=== PATIENT | male | born 1965 | race Two or more races ===

== ENCOUNTER 2017-06-26 10:49 | Inpatient (IN) | payer OTHER ==
[2017-06-26 12:09] VITALS: BMI 45.1
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
[2017-06-26] MEDS ORDERED: MAG HYDROX/AL HYDROX/SIMETH 30 ML UNIT-DOSE CUP PO PRN (14:00)
[2017-06-26] MEDS ORDERED: MAGNESIUM HYDROX 2400MG/30ML ORAL SUSPENSION 30 ML CUP PO PRN (14:00)
[2017-06-26] MEDS ORDERED: LOPERAMIDE HCL 2 MG CAPSULE PO PRN (14:00)
[2017-06-26] MEDS ORDERED: MENTHOL/PHENOL 1 EACH UD MM PRN (14:00)
[2017-06-26] MEDS ORDERED: diazePAM 5 MG TABLET PO ONE (14:00)
[2017-06-26] MEDS ORDERED: guaiFENesin/D-METHORPHAN HB 10 ML UNIT-DOSE CUPS PO PRN (14:00)
[2017-06-26] MEDS ORDERED: NICOTINE POLACRILEX 2 MG GUM BUC PRN (14:00)
[2017-06-26] MEDS ORDERED: P-EPHED 60MG/TRIPROLIDI 2.5MG TABLET PO PRN (14:00)
[2017-06-26] MEDS ORDERED: MAGNESIUM CITRATE 300 ML BOTTLE PO PRN (14:00)
[2017-06-26] MEDS: ALBUTEROL SO4 18 GM HFA INHALER IH PRN ×2 (17:10→23:31)
[2017-06-26 17:39] LABS: URINE APPEARANCE CLEAR; URINE BILIRUBIN NEGATIVE (NEGATIVE); URINE BLOOD NEGATIVE (NEGATIVE); URINE COLOR LTYELLOW; URINE GLUCOSE (UA) NEGATIVE (NEGATIVE); URINE KETONE NEGATIVE (NEGATIVE); URINE LEUK ESTERASE NEGATIVE (NEGATIVE); URINE NITRITE NEGATIVE (NEGATIVE); URINE PROTEIN NEGATIVE (NEGATIVE)
[2017-06-26] MEDS ORDERED: ALBUTEROL SO4 2.5/IPRATROPIUM 0.5 INH SOL 3 ML VIAL.NEB. NEB PRN (19:42)
[2017-06-26] MEDS: THIAMINE HCL 100 MG TABLET (FP) PO SCH (22:44)
[2017-06-26] MEDS: diazePAM 5 MG TABLET PO SCH (22:44)
[2017-06-27] MEDS: diazePAM 5 MG TABLET PO PRN ×2 (02:25→17:36)
[2017-06-27] MEDS: diazePAM 5 MG TABLET PO SCH ×3 (06:20→21:43)
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
[2017-06-27] MEDS: PRENATAL VITAMINS W/ FOLIC ACID TABLET (FP) PO SCH (09:44)
[2017-06-27] MEDS ORDERED: METHADONE HCL 10 MG TABLET PO ONE (10:00)
[2017-06-27 10:37] LABS: HEMATOCRIT 36.2 % (35.4-49); HEMOGLOBIN 11.8 GM/dL (11.7-16.9); MCH 26.7 pg (25.7-33.7); MCHC 32.6 g/dl (32.0-35.9); MEAN CELL VOLUME 81.9 fl (80-96); MEAN PLT VOLUME 8.5 fl (7.5-11.1); PLATELET COUNT 159 K/MM3 (134-434); RBC 4.42 M/mm3 (4.00-5.60); RDW 17.1 % (11.9-15.9); WHITE BLOOD COUNT 6.5 K/mm3 (4.0-10.0)
[2017-06-27 10:40] LABS: ALBUMIN 3.3 g/dl (3.4-5.0); ANION GAP 6 (8-16); BLOOD UREA NITROGEN 11 mg/dL (7-18); CALCIUM 8.1 mg/dL (8.5-10.1); CHLORIDE 103 mmol/L (98-107); CO2 30 mmol/L (21-32); GLUCOSE,RANDOM 158 mg/dL (74-106); SODIUM 139 mmol/L (136-145)
[2017-06-27 10:44] LABS: ALK PHOS 176 U/L (45-117); BILIRUBIN,TOTAL 0.4 mg/dL (0.2-1.0); CREATININE 0.6 mg/dL (0.7-1.3); SGOT/AST 52 U/L (15-37); SGPT/ALT 68 U/L (12-78)
[2017-06-27] MEDS ORDERED: BISACODYL 5 MG TABLET.DR (FP) PO ONE (10:48)
[2017-06-27] MEDS ORDERED: PNEUMOC 13-VAL CONJ-DIP CRM/PF 0.5 ML DISP.SYRIN IM ONE (12:00)
--- NOTE | 2017-06-27 14:29 | EKG ---
Test Reason : Blood Pressure : / mmHG Vent. Rate : 081 BPM Atrial Rate : 081 BPM P-R Int : 140 ms QRS Dur : 102 ms QT Int : 406 ms P-R-T Axes : 049 039 038 degrees QTc Int : 471 ms NORMAL SINUS RHYTHM NORMAL ECG NO PREVIOUS ECGS AVAILABLE Confirmed by MD KIET, SIGIFREDO ([id number]) on 06/27/2017 2:29:13 PM Referred By: Confirmed By:SIGIFREDO SANTA MD
[2017-06-27] MEDS: ACETAMINOPHEN 325 MG TABLET (FP) PO PRN (15:20)
--- NOTE | 2017-06-27 16:35 | PN ---
S CIWA - CIWA Score Nausea/Vomitin Muscle Tremors: 4-Moderate,w/Arms Extend Anxiety: 4-Mod. Anxious/Guarded Agitation: 4-Moderately Restless Paroxysmal Sweats: 3 Orientation: 0-Oriented Tacttile Disturbances: 0-None Auditory Disturbances: 0-None Visual Disturbances: 0-None Headache: 0-None Present CIWA-Ar Total Score: 18 BHS Progress Note (SOAP) Subjective: Sweating, anxious, restless, constipation x 2 days (wants dulcolax), c/o fungus under feet and requesting antifungal cream Objective: 06/27/17 16:34 Last Vital Signs Temp Pulse Resp BP Pulse Ox 96.6 F L 79 18 117/73 06/27/17 14:29 06/27/17 14:29 06/27/17 14:29 06/27/17 14:29 Laboratory Tests 06/26/17 06/27/17 06/27/17 15:25 08:00 08:00 WBC 6.5 RBC 4.42 Hgb 11.8 D Hct 36.2 D MCV 81.9 MCH 26.7 MCHC 32.6 RDW 17.1 H Plt Count 159 MPV 8.5 Sodium 139 Potassium 4.0 Chloride 103 Carbon Dioxide 30 Anion Gap 6 L BUN 11 D Creatinine 0.6 L D Creat Clearance w eGFR > 60 Random Glucose 158 H D Calcium 8.1 L Total Bilirubin 0.4 D AST 52 H D ALT 68 D Alkaline Phosphatase 176 H D Total Protein 7.0 Albumin 3.3 L Urine Color Ltyellow Urine Appearance Clear Urine pH 8.0 D Ur Specific [place] 1.012 Urine Protein Negative Urine Glucose (UA) Negative Urine Ketones Negative Urine Blood Negative Urine Nitrite Negative Urine Bilirubin Negative Urine Urobilinogen 2.0 Ur Leukocyte Esterase Negative RPR Titer 06/27/17 08:00 WBC RBC Hgb Hct MCV MCH MCHC RDW Plt Count MPV Sodium Potassium Chloride Carbon Dioxide Anion Gap BUN Creatinine Creat Clearance w eGFR Random Glucose Calcium Total Bilirubin AST ALT Alkaline Phosphatase Total Protein Albumin Urine Color Urine Appearance Urine pH Ur Specific [place] Urine Protein Urine Glucose (UA) Urine Ketones Urine Blood Urine Nitrite Urine Bilirubin Urine Urobilinogen Ur Leukocyte Esterase RPR Titer Nonreactive Labs noted Assessment: 06/27/17 16:34 Withdrawal symptoms Plan: Continue detox Encouraged to drink more water for hydration Acute constipation: dulcolax 10mg PO x 1, encouraged to drink lots of water Tinea pedis: lotrimin 1% cream bid
[2017-06-27] MEDS: ALBUTEROL SO4 18 GM HFA INHALER IH PRN ×2 (16:59→21:44)
[2017-06-27] MEDS: IBUPROFEN 400 MG TABLET (FP) PO PRN (21:43)
[2017-06-27] MEDS: THIAMINE HCL 100 MG TABLET (FP) PO SCH (21:43)
[2017-06-27] MEDS: CLOTRIMAZOLE 1% CREAM 15 GM TUBE TP SCH (23:02)
[2017-06-28] MEDS: diazePAM 5 MG TABLET PO PRN ×2 (06:02→17:08)
[2017-06-28] MEDS ORDERED: METHADONE HCL 40 MG DISPERSABLE TABLET PO ONE (09:45)
[2017-06-28] MEDS: diazePAM 5 MG TABLET PO SCH ×2 (09:48→22:15)
[2017-06-28] MEDS: PRENATAL VITAMINS W/ FOLIC ACID TABLET (FP) PO SCH (09:48)
[2017-06-28] MEDS: ALBUTEROL SO4 18 GM HFA INHALER IH PRN (09:50)
--- NOTE | 2017-06-28 12:20 | PN ---
S CIWA - CIWA Score Nausea/Vomitin Muscle Tremors: 3 Anxiety: 4-Mod. Anxious/Guarded Agitation: 4-Moderately Restless Paroxysmal Sweats: 2 Orientation: 0-Oriented Tacttile Disturbances: 0-None Auditory Disturbances: 0-None Visual Disturbances: 0-None Headache: 0-None Present CIWA-Ar Total Score: 16 BHS Progress Note (SOAP) Subjective: sweats sleep disturbance "I have fungus to feet" Objective: 06/28/17 12:16 A & O x 3 Ambulating steadily Swelling to feet with no pitting Peeling to feet Vital Signs Temperature 97.1 F L 06/28/17 09:25 Pulse Rate 87 06/28/17 09:25 Respiratory Rate 20 06/28/17 09:25 Blood Pressure 119/76 06/28/17 09:25 O2 Sat by Pulse Oximetry (%) Assessment: 06/28/17 12:19 withdrawal sx tinea pedis Plan: continue detox Fungal cream to feet
[2017-06-28] MEDS: DOCUSATE SODIUM 100 MG CAPSULE (FP) PO SCH (13:16)
[2017-06-28] MEDS: CLOTRIMAZOLE 1% CREAM 15 GM TUBE TP SCH ×2 (15:45→22:15)
[2017-06-28] MEDS: ACETAMINOPHEN 325 MG TABLET (FP) PO PRN (22:15)
[2017-06-28] MEDS: THIAMINE HCL 100 MG TABLET (FP) PO SCH (22:15)
[2017-06-28] MEDS: hydrOXYzine PAMOATE 25 MG CAPSULE (FP) PO PRN (22:18)
[2017-06-29] MEDS: IBUPROFEN 400 MG TABLET (FP) PO PRN (02:43)
[2017-06-29] MEDS: hydrOXYzine PAMOATE 25 MG CAPSULE (FP) PO PRN (02:43)
[2017-06-29] MEDS ORDERED: METHADONE HCL 40 MG DISPERSABLE TABLET PO SCH (06:00)
[2017-06-29] MEDS: diazePAM 5 MG TABLET PO PRN (06:46)
[2017-06-29] MEDS: ALBUTEROL SO4 18 GM HFA INHALER IH PRN (07:58)
[2017-06-29] MEDS: PRENATAL VITAMINS W/ FOLIC ACID TABLET (FP) PO SCH (10:37)
[2017-06-29] MEDS: DOCUSATE SODIUM 100 MG CAPSULE (FP) PO SCH (10:38)
[2017-06-29] MEDS: diazePAM 5 MG TABLET PO SCH (10:38)
--- NOTE | 2017-06-29 12:33 | PN ---
Psychiatric Progress Note Vital Signs: Vital Signs Period Temp Pulse Resp BP Sys/Rashid Pulse Ox Last 24 Hr 97.2 F-98.6 F 77-84 14-20 104-121/64-79 Date of Session: 06/29/17 Chief Complaint:: Not offered. HPI: Patient not found for examination.Left unit without contact with this song writer.See staff's notes for details. Current Medications: Active Medications Generic Name Dose Route Start Last Admin Trade Name Freq PRN Reason Stop Dose Admin Acetaminophen 650 mg 06/26/17 14:00 06/28/17 22:15 Tylenol - PO 650 mg Q4H PRN Administration FEVER Al Hydroxide/Mg Hydroxide 30 ml 06/26/17 14:00 Mylanta Oral Suspension - PO Q6H PRN DYSPEPSIA Albuterol Sulfate 2 puff 06/26/17 14:01 06/29/17 07:58 Ventolin Hfa Inhaler - IH 2 puff Q4H PRN Administration WHEEZING Albuterol/Ipratropium 1 amp 06/26/17 19:42 Duoneb - NEB Q6H PRN SHORTNESS OF BREATH Clotrimazole 1 applic 06/27/17 22:00 06/28/17 22:15 Lotrimin 1% Cream - TP Not Given BID GRECIA Diazepam 10 mg 06/26/17 14:00 06/29/17 06:46 Valium - PO 06/29/17 13:59 10 mg Q4H PRN Administration WITHDRAWAL(CONT SUBST) Diazepam 5 mg 06/28/17 10:00 06/29/17 10:38 Valium - PO 06/29/17 22:01 5 mg BID GRECIA Administration Diazepam 5 mg 06/30/17 10:00 Valium - PO 06/30/17 10:01 DAILY GRECIA Docusate Sodium 100 mg 06/28/17 12:45 06/29/17 10:38 Colace - PO Not Given DAILY GRECIA Eucalyptus/Menthol/Phenol/Sorbitol 1 each 06/26/17 14:00 Cepastat Lozenge - MM Q4H PRN SORE THROAT Guaifenesin 10 ml 06/26/17 14:00 Robitussin Dm - PO Q6H PRN COUGH Hydroxyzine Pamoate 25 mg 06/26/17 14:00 06/29/17 02:43 Vistaril - PO 25 mg Q4H PRN Administration AGITATION Ibuprofen 400 mg 06/26/17 14:00 06/29/17 02:43 Motrin - PO 400 mg Q6H PRN Administration PAIN LEVEL 4-6 Loperamide HCl 4 mg 06/26/17 14:00 Imodium - PO Q6H PRN DIARRHEA Magnesium Citrate 300 ml 06/26/17 14:00 Citroma - PO Q48H PRN CONSTIPATION Magnesium Hydroxide 30 ml 06/26/17 14:00 Milk Of Magnesia - PO DAILY PRN CONSTIPATION Methadone HCl 80 mg 06/29/17 06:00 06/29/17 05:47 Dolophine - PO 07/05/17 06:01 80 mg DAILY@0600 GRECIA Administration Nicotine Polacrilex 2 mg 06/26/17 14:00 Nicorette Gum - BUC Q2H PRN NICOTINE REPLACEMENT RX Multivit/Folic Acid/Iron 1 tab 06/27/17 10:00 06/29/17 10:37 Vitamins (Sjr) - PO 1 tab DAILY GRECIA Administration Pseudoephedrine/Triprolidine 1 combo 06/26/17 14:00 Actifed - PO TID PRN NASAL CONGESTION Thiamine HCl 100 mg 06/26/17 22:00 06/28/17 22:15 Vitamin B1 - PO 100 mg HS GRECIA Administration
--- NOTE | 2017-06-29 12:59 | DS ---
[facility] Detox Discharge Summary Admission Date: 06/26/17 Discharge Date: 06/29/17 - History Present History: Sedative Dependence Additional Comments: PATIENT DOES NOT WISH TO STAY TO COMPLETE DETOX REGIMEN. RISKS OF LEAVING DETOX UNIT AGAINST MEDICAL ADVICE AND PRIOR TO COMPLETION OF DETOX REGIMEN EXPLAINED TO PATIENT. PATIENT ADVISED TO GO IMMEDIATELY TO NEAREST ER SHOULD ANY INTOLERABLE DETOX SYMPTOMS DEVELOP AT ANY TIME. PATIENT LEFT DETOX UNIT IN STABLE MEDICAL CONDITION. Pertinent Past History: Pedal Edema, MMTP, Bipolar disorder, Nicotine Dependence, Asthma. - Physical Exam Results Vital Signs: Vital Signs Temperature 98.0 F 06/29/17 09:09 Pulse Rate 77 06/29/17 09:09 Respiratory Rate 18 06/29/17 09:09 Blood Pressure 108/64 06/29/17 09:09 O2 Sat by Pulse Oximetry (%) Pertinent Admission Physical Exam Findings: WITHDRAWAL SYMPTOMS. Laboratory Tests 06/26/17 06/27/17 06/27/17 15:25 08:00 08:00 WBC 6.5 RBC 4.42 Hgb 11.8 D Hct 36.2 D MCV 81.9 MCH 26.7 MCHC 32.6 RDW 17.1 H Plt Count 159 MPV 8.5 Sodium 139 Potassium 4.0 Chloride 103 Carbon Dioxide 30 Anion Gap 6 L BUN 11 D Creatinine 0.6 L D Creat Clearance w eGFR > 60 Random Glucose 158 H D Calcium 8.1 L Total Bilirubin 0.4 D AST 52 H D ALT 68 D Alkaline Phosphatase 176 H D Total Protein 7.0 Albumin 3.3 L Urine Color Ltyellow Urine Appearance Clear Urine pH 8.0 D Ur Specific [place] 1.012 Urine Protein Negative Urine Glucose (UA) Negative Urine Ketones Negative Urine Blood Negative Urine Nitrite Negative Urine Bilirubin Negative Urine Urobilinogen 2.0 Ur Leukocyte Esterase Negative RPR Titer 06/27/17 08:00 WBC RBC Hgb Hct MCV MCH MCHC RDW Plt Count MPV Sodium Potassium Chloride Carbon Dioxide Anion Gap BUN Creatinine Creat Clearance w eGFR Random Glucose Calcium Total Bilirubin AST ALT Alkaline Phosphatase Total Protein Albumin Urine Color Urine Appearance Urine pH Ur Specific [place] Urine Protein Urine Glucose (UA) Urine Ketones Urine Blood Urine Nitrite Urine Bilirubin Urine Urobilinogen Ur Leukocyte Esterase RPR Titer Nonreactive LABS NOTED. - Treatment Hospital Course: Detoxed Safely - Medication Discharge Medications: Ambulatory Orders Albuterol Sulfate Inhaler - [Ventolin Hfa Inhaler -] 2 inh PO Q4H PRN 06/26/17 Fluoxetine HCl [Prozac -] 40 mg PO BID 06/26/17 Mirtazapine [Remeron -] 15 mg PO HS 06/26/17 Sertraline HCl [Zoloft] 100 mg PO BID 06/26/17 - Diagnosis (1) Asthma Current Visit: Yes Status: Chronic Qualifiers: Asthma severity: mild Asthma persistence: intermittent Asthma complication type: uncomplicated Qualified Code(s): J45.20 - Mild intermittent asthma, uncomplicated (2) Methadone maintenance therapy patient Current Visit: Yes Status: Chronic (3) Nicotine dependence Current Visit: Yes Status: Chronic Qualifiers: Nicotine product type: cigarettes Substance use status: uncomplicated Qualified Code(s): F17.210 - Nicotine dependence, cigarettes, uncomplicated (4) Obesity, Class III, BMI 40-49.9 (morbid obesity) Current Visit: Yes Status: Chronic (5) Pedal edema Current Visit: Yes Status: Chronic (6) Bipolar II disorder Current Visit: No Status: Chronic (7) Sedative, hypnotic or anxiolytic dependence with withdrawal, uncomplicated Current Visit: Yes Status: Acute - AMA Did Patient Leave Against Medical Advice: Yes (PATIENT DID NOT WISH TO STAY TO COMPLETE DEOTX REGIMEN.)
[2017-06-29 13:23] VITALS: BP 110/87; PULSE 76; TEMP 98.7
[2017-06-30] MEDS ORDERED: diazePAM 5 MG TABLET PO SCH (10:00)
== END 2017-06-29 12:30 | disposition left against medical advice (07) | DRG 770 ==
LOC: YASAS 10:49 → Y3N 14:08
PROVIDERS: ADMIT Internal Medicine; ATTEND Internal Medicine
PROC: HZ2ZZZZ Detoxification Services for Substance Abuse Treatment (ICD-10-PCS; principal; 2017-06-26)
DX: F13.230 Sedative, hypnotic or anxiolytic dependence with withdrawal, uncomplicated (principal); F11.20 Opioid dependence, uncomplicated; F17.210 Nicotine dependence, cigarettes, uncomplicated; F31.81 Bipolar II disorder; J45.20 Mild intermittent asthma, uncomplicated; E66.01 Morbid (severe) obesity due to excess calories; Z68.42 Body mass index [BMI] 45.0-49.9, adult; R60.0 Localized edema; B35.3 Tinea pedis; K59.00 Constipation, unspecified; Z91.013 Allergy to seafood; Z86.69 Personal history of other diseases of the nervous system and sense organs
CPT/HCPCS: 36415; 80053; 81003; 85027; 86593; 90670; 93005; 93010

== ENCOUNTER 2017-08-04 16:04 | Inpatient (IN) | payer OTHER ==
[2017-08-04 16:57] VITALS: BMI 44.9
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
[2017-08-04] MEDS ORDERED: MAGNESIUM CITRATE 300 ML BOTTLE PO PRN (21:44)
[2017-08-04] MEDS ORDERED: LOPERAMIDE HCL 2 MG CAPSULE PO PRN (21:44)
[2017-08-04] MEDS ORDERED: MAG HYDROX/AL HYDROX/SIMETH 30 ML UNIT-DOSE CUP PO PRN (21:44)
[2017-08-04] MEDS ORDERED: guaiFENesin/D-METHORPHAN HB 10 ML UNIT-DOSE CUPS PO PRN (21:44)
[2017-08-04] MEDS ORDERED: P-EPHED 60MG/TRIPROLIDI 2.5MG TABLET PO PRN (21:44)
[2017-08-04] MEDS ORDERED: MENTHOL/PHENOL 1 EACH UD MM PRN (21:44)
[2017-08-04] MEDS ORDERED: IBUPROFEN 400 MG TABLET (FP) PO PRN (21:44)
[2017-08-04] MEDS ORDERED: MAGNESIUM HYDROX 2400MG/30ML ORAL SUSPENSION 30 ML CUP PO PRN (21:44)
[2017-08-04] MEDS ORDERED: ACETAMINOPHEN 325 MG TABLET (FP) PO PRN (21:44)
[2017-08-05] LABS: URINE APPEARANCE SLCLOUDY; URINE BILIRUBIN NEGATIVE (<2.0 mg/dL); URINE BLOOD NEGATIVE (NEGATIVE); URINE COLOR AMBER; URINE GLUCOSE (UA) NEGATIVE (NEGATIVE); URINE KETONE NEGATIVE (NEGATIVE); URINE LEUK ESTERASE NEGATIVE (NEGATIVE); URINE NITRITE NEGATIVE (NEGATIVE); URINE PROTEIN NEGATIVE (NEGATIVE); URINE UROBILINOGEN NEGATIVE mg/dL (0.2-1.0)
[2017-08-05] MEDS: THIAMINE HCL 100 MG TABLET (FP) PO SCH ×2 (00:22→21:44)
[2017-08-05] MEDS: hydrOXYzine PAMOATE 50 MG CAPSULE (FP) PO PRN (00:22)
[2017-08-05] MEDS: MELATONIN 5 MG TABLETS PO PRN ×2 (00:22→21:45)
[2017-08-05] MEDS ORDERED: METHADONE HCL 10 MG TABLET PO SCH (08:00)
[2017-08-05] MEDS ORDERED: METHADONE HCL 10 MG TABLET ONE (08:47)
[2017-08-05] MEDS: METHADONE 40 MG, METHADONE 30 MG PO SCH (08:48)
[2017-08-05] MEDS ORDERED: METHADONE HCL 40 MG DISPERSABLE TABLET ONE (08:48)
[2017-08-05 10:00] LABS: HEMOGLOBIN 13.1 GM/dL (11.7-16.9); MCH 26.5 pg (25.7-33.7); MEAN CELL VOLUME 82.8 fl (80-96); MEAN PLT VOLUME 9.1 fl (7.5-11.1); PLATELET COUNT 168 K/MM3 (134-434); RBC 4.95 M/mm3 (4.00-5.60); RDW 16.4 % (11.9-15.9); WHITE BLOOD COUNT 7.3 K/mm3 (4.0-10.0)
[2017-08-05] MEDS: PRENATAL VITAMINS W/ FOLIC ACID TABLET (FP) PO SCH (10:09)
[2017-08-05] MEDS: NICOTINE 14 MG/24 HOURS TOPICAL PATCH TD SCH (10:09)
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
[2017-08-05 10:26] LABS: CHLORIDE 105 mmol/L (98-107); POTASSIUM 4.4 mmol/L (3.5-5.1); SODIUM 139 mmol/L (136-145)
[2017-08-05 10:40] LABS: ALBUMIN 3.5 g/dl (3.4-5.0); ALK PHOS 233 U/L (45-117); ANION GAP 6 (8-16); BILIRUBIN,TOTAL 0.3 mg/dL (0.2-1.0); BLOOD UREA NITROGEN 15 mg/dL (7-18); CALCIUM 8.6 mg/dL (8.5-10.1); CO2 28 mmol/L (21-32); CREATININE 0.7 mg/dL (0.7-1.3); GLUCOSE,RANDOM 105 mg/dL (74-106); SGOT/AST 53 U/L (15-37); SGPT/ALT 106 U/L (12-78); TOT PROT 7.7 g/dl (6.4-8.2)
--- NOTE | 2017-08-05 13:31 | EKG ---
Test Reason : Blood Pressure : / mmHG Vent. Rate : 063 BPM Atrial Rate : 063 BPM P-R Int : 142 ms QRS Dur : 100 ms QT Int : 458 ms P-R-T Axes : 054 038 046 degrees QTc Int : 468 ms NORMAL SINUS RHYTHM NORMAL ECG WHEN COMPARED WITH ECG OF 26-JUN-2017 15:22, NO SIGNIFICANT CHANGE WAS FOUND Confirmed by NHAN DE LA O MD ([id number]) on 08/05/2017 1:31:06 PM Referred By: Confirmed By:NHAN DE LA O MD
[2017-08-05] MEDS: PATIENT'S OWN MEDICATION (NON-FORMULARY) (Sertraline Hcl [Zoloft] 100 MG) PO SCH ×2 (15:13→21:43)
[2017-08-05] MEDS: HALOPERIDOL PO SCH ×2 (15:13→21:43)
[2017-08-05] MEDS ORDERED: PT OWN MED DRAWER 7, Y5N ONE (20:25)
[2017-08-05] MEDS: PATIENT'S OWN MEDICATION (NON-FORMULARY) (Mirtazapine [Remeron -] 15 MG) PO SCH (21:44)
[2017-08-06] MEDS ORDERED: METHADONE HCL 10 MG TABLET ONE (04:09)
[2017-08-06] MEDS ORDERED: METHADONE HCL 40 MG DISPERSABLE TABLET ONE (04:10)
[2017-08-06] MEDS: METHADONE 40 MG, METHADONE 30 MG PO SCH (06:28)
[2017-08-06] MEDS ORDERED: PT OWN MED DRAWER 7, Y5N ONE ×2 (08:43→20:13)
[2017-08-06] MEDS: PRENATAL VITAMINS W/ FOLIC ACID TABLET (FP) PO SCH (10:03)
[2017-08-06] MEDS: PATIENT'S OWN MEDICATION (NON-FORMULARY) (Sertraline Hcl [Zoloft] 100 MG) PO SCH ×2 (10:04→21:23)
[2017-08-06] MEDS: HALOPERIDOL PO SCH ×2 (10:04→21:22)
[2017-08-06] MEDS: NICOTINE 14 MG/24 HOURS TOPICAL PATCH TD SCH (10:04)
--- NOTE | 2017-08-06 13:10 | PN ---
[facility] Progress Note Note: Pt requesting for colace for constipation. Colace 100mg bid ordered. Continue to monitor clinically.
[2017-08-06] MEDS: hydrOXYzine PAMOATE 50 MG CAPSULE (FP) PO PRN ×2 (13:18→21:22)
[2017-08-06] MEDS: THIAMINE HCL 100 MG TABLET (FP) PO SCH (21:22)
[2017-08-06] MEDS: MELATONIN 5 MG TABLETS PO PRN (21:22)
[2017-08-06] MEDS: PATIENT'S OWN MEDICATION (NON-FORMULARY) (Mirtazapine [Remeron -] 15 MG) PO SCH (21:22)
[2017-08-06] MEDS: DOCUSATE SODIUM 100 MG CAPSULE (FP) PO PRN (21:22)
[2017-08-07] MEDS ORDERED: METHADONE HCL 10 MG TABLET ONE (03:59)
[2017-08-07] MEDS ORDERED: METHADONE HCL 40 MG DISPERSABLE TABLET ONE (04:00)
[2017-08-07] MEDS: METHADONE 40 MG, METHADONE 30 MG PO SCH (06:04)
[2017-08-07] MEDS: PRENATAL VITAMINS W/ FOLIC ACID TABLET (FP) PO SCH (09:53)
[2017-08-07] MEDS: PATIENT'S OWN MEDICATION (NON-FORMULARY) (Sertraline Hcl [Zoloft] 100 MG) PO SCH ×2 (09:53→21:30)
[2017-08-07] MEDS: NICOTINE 14 MG/24 HOURS TOPICAL PATCH TD SCH (09:53)
[2017-08-07] MEDS: HALOPERIDOL PO SCH ×2 (09:53→21:30)
[2017-08-07] MEDS: hydrOXYzine PAMOATE 50 MG CAPSULE (FP) PO PRN ×2 (14:45→21:30)
[2017-08-07] MEDS ORDERED: PT OWN MED DRAWER 7, Y5N ONE ×2 (19:54→21:32)
[2017-08-07] MEDS: DOCUSATE SODIUM 100 MG CAPSULE (FP) PO PRN (21:29)
[2017-08-07] MEDS: PATIENT'S OWN MEDICATION (NON-FORMULARY) (Mirtazapine [Remeron -] 15 MG) PO SCH (21:30)
[2017-08-07] MEDS: THIAMINE HCL 100 MG TABLET (FP) PO SCH (21:30)
[2017-08-07] MEDS: ALBUTEROL SO4 18 GM HFA INHALER IH PRN (21:33)
[2017-08-08] MEDS ORDERED: METHADONE HCL 10 MG TABLET ONE (04:11)
[2017-08-08] MEDS ORDERED: METHADONE HCL 40 MG DISPERSABLE TABLET ONE (04:11)
[2017-08-08] MEDS: METHADONE 40 MG, METHADONE 30 MG PO SCH (06:03)
[2017-08-08] MEDS ORDERED: PT OWN MED DRAWER 7, Y5N ONE ×2 (08:47→19:41)
[2017-08-08] MEDS: NICOTINE 14 MG/24 HOURS TOPICAL PATCH TD SCH (09:19)
[2017-08-08] MEDS: PRENATAL VITAMINS W/ FOLIC ACID TABLET (FP) PO SCH (09:19)
[2017-08-08] MEDS: HALOPERIDOL PO SCH ×2 (09:20→21:23)
[2017-08-08] MEDS: hydrOXYzine PAMOATE 50 MG CAPSULE (FP) PO PRN ×2 (09:20→21:23)
[2017-08-08] MEDS: PATIENT'S OWN MEDICATION (NON-FORMULARY) (Sertraline Hcl [Zoloft] 100 MG) PO SCH ×2 (09:20→21:24)
[2017-08-08] MEDS: MELATONIN 5 MG TABLETS PO PRN (21:23)
[2017-08-08] MEDS: DOCUSATE SODIUM 100 MG CAPSULE (FP) PO PRN (21:23)
[2017-08-08] MEDS: THIAMINE HCL 100 MG TABLET (FP) PO SCH (21:23)
[2017-08-08] MEDS: ALBUTEROL SO4 18 GM HFA INHALER IH PRN (21:24)
[2017-08-08] MEDS: PATIENT'S OWN MEDICATION (NON-FORMULARY) (Mirtazapine [Remeron -] 15 MG) PO SCH (21:24)
[2017-08-09] MEDS ORDERED: METHADONE HCL 40 MG DISPERSABLE TABLET ONE (03:04)
[2017-08-09] MEDS ORDERED: METHADONE HCL 10 MG TABLET ONE (03:04)
[2017-08-09] MEDS: METHADONE 40 MG, METHADONE 30 MG PO SCH (06:32)
[2017-08-09] MEDS: hydrOXYzine PAMOATE 50 MG CAPSULE (FP) PO PRN ×3 (06:46→18:03)
[2017-08-09] MEDS ORDERED: PT OWN MED DRAWER 7, Y5N ONE ×3 (08:43→21:58)
[2017-08-09] MEDS: PRENATAL VITAMINS W/ FOLIC ACID TABLET (FP) PO SCH (09:25)
[2017-08-09] MEDS: HALOPERIDOL PO SCH ×2 (09:25→21:07)
[2017-08-09] MEDS: PATIENT'S OWN MEDICATION (NON-FORMULARY) (Sertraline Hcl [Zoloft] 100 MG) PO SCH (09:25)
[2017-08-09] MEDS: ALBUTEROL SO4 18 GM HFA INHALER IH PRN ×2 (09:26→21:07)
[2017-08-09] MEDS: NICOTINE 14 MG/24 HOURS TOPICAL PATCH TD SCH (09:51)
[2017-08-09] MEDS: NICOTINE POLACRILEX 2 MG GUM BUC PRN (19:29)
[2017-08-09] MEDS: DOCUSATE SODIUM 100 MG CAPSULE (FP) PO PRN (21:04)
[2017-08-09] MEDS: MELATONIN 5 MG TABLETS PO PRN (21:04)
[2017-08-09] MEDS: SERTRALINE HCL 50 MG TABLET (FP) PO SCH (21:05)
[2017-08-09] MEDS: PATIENT'S OWN MEDICATION (NON-FORMULARY) (Mirtazapine [Remeron -] 15 MG) PO SCH (21:07)
[2017-08-09] MEDS: THIAMINE HCL 100 MG TABLET (FP) PO SCH (21:07)
[2017-08-10] MEDS ORDERED: METHADONE HCL 40 MG DISPERSABLE TABLET ONE (05:01)
[2017-08-10] MEDS ORDERED: METHADONE HCL 10 MG TABLET ONE (05:01)
[2017-08-10] MEDS: METHADONE 40 MG, METHADONE 30 MG PO SCH (05:57)
[2017-08-10] MEDS: hydrOXYzine PAMOATE 50 MG CAPSULE (FP) PO PRN ×3 (06:10→17:57)
[2017-08-10] MEDS: SERTRALINE HCL 50 MG TABLET (FP) PO SCH ×2 (09:47→21:03)
[2017-08-10] MEDS: NICOTINE 14 MG/24 HOURS TOPICAL PATCH TD SCH (09:47)
[2017-08-10] MEDS: PRENATAL VITAMINS W/ FOLIC ACID TABLET (FP) PO SCH (09:48)
[2017-08-10] MEDS: HALOPERIDOL PO SCH ×2 (09:48→21:03)
[2017-08-10] MEDS ORDERED: PT OWN MED DRAWER 7, Y5N ONE ×3 (09:48→22:43)
[2017-08-10] MEDS: NICOTINE POLACRILEX 2 MG GUM BUC PRN (18:00)
[2017-08-10] MEDS: PATIENT'S OWN MEDICATION (NON-FORMULARY) (Mirtazapine [Remeron -] 15 MG) PO SCH (21:04)
[2017-08-10] MEDS: THIAMINE HCL 100 MG TABLET (FP) PO SCH (22:07)
[2017-08-11] MEDS ORDERED: METHADONE HCL 10 MG TABLET ONE (04:08)
[2017-08-11] MEDS ORDERED: METHADONE HCL 40 MG DISPERSABLE TABLET ONE (04:08)
[2017-08-11] MEDS: METHADONE 40 MG, METHADONE 30 MG PO SCH (06:08)
[2017-08-11 06:50] VITALS: TEMP 97.2
[2017-08-11] MEDS: hydrOXYzine PAMOATE 50 MG CAPSULE (FP) PO PRN ×3 (07:15→17:44)
[2017-08-11] MEDS ORDERED: PT OWN MED DRAWER 7, Y5N ONE ×2 (08:41→19:39)
[2017-08-11] MEDS: PRENATAL VITAMINS W/ FOLIC ACID TABLET (FP) PO SCH (09:39)
[2017-08-11] MEDS: SERTRALINE HCL 50 MG TABLET (FP) PO SCH ×2 (09:40→21:04)
[2017-08-11] MEDS: NICOTINE 14 MG/24 HOURS TOPICAL PATCH TD SCH (09:40)
[2017-08-11] MEDS: HALOPERIDOL PO SCH ×2 (09:40→21:05)
[2017-08-11] MEDS: ALBUTEROL SO4 18 GM HFA INHALER IH PRN ×2 (09:41→21:04)
--- NOTE | 2017-08-11 14:00 | PN ---
[facility] Progress Note Note: Pt presents with anxiety, muscle aches and tremors. Denies CP, SOB and Dizziness. Vital Signs Temperature 97.2 F L 08/11/17 06:49 Pulse Rate 74 08/11/17 06:49 Respiratory Rate 18 08/11/17 06:49 Blood Pressure 111/75 08/11/17 06:49 O2 Sat by Pulse Oximetry (%) Laboratory Tests 08/04/17 08/05/17 08/05/17 22:30 08:35 08:35 WBC 7.3 RBC 4.95 Hgb 13.1 D Hct 41.0 MCV 82.8 MCH 26.5 MCHC 32.0 RDW 16.4 H Plt Count 168 MPV 9.1 Sodium 139 Potassium 4.4 Chloride 105 Carbon Dioxide 28 Anion Gap 6 L BUN 15 D Creatinine 0.7 Creat Clearance w eGFR > 60 Random Glucose 105 D Calcium 8.6 Total Bilirubin 0.3 D AST 53 H ALT 106 H D Alkaline Phosphatase 233 H D Total Protein 7.7 Albumin 3.5 Urine Color Radha Urine Appearance Slcloudy Urine pH 5.0 D Ur Specific [place] 1.025 Urine Protein Negative Urine Glucose (UA) Negative Urine Ketones Negative Urine Blood Negative Urine Nitrite Negative Urine Bilirubin Negative Urine Urobilinogen Negative Ur Leukocyte Esterase Negative RPR Titer 08/05/17 08:35 WBC RBC Hgb Hct MCV MCH MCHC RDW Plt Count MPV Sodium Potassium Chloride Carbon Dioxide Anion Gap BUN Creatinine Creat Clearance w eGFR Random Glucose Calcium Total Bilirubin AST ALT Alkaline Phosphatase Total Protein Albumin Urine Color Urine Appearance Urine pH Ur Specific [place] Urine Protein Urine Glucose (UA) Urine Ketones Urine Blood Urine Nitrite Urine Bilirubin Urine Urobilinogen Ur Leukocyte Esterase RPR Titer Nonreactive Obj: General: Pt anxious and pacing within unit. Skin: warm and dry Ext: full ROM, no edema. + mild tremors A/P Withdrawal syndrome BP stable Will order clonidine 0.1mg po once continue vistaril and monitor clinically
[2017-08-11] MEDS ORDERED: cloNIDine HCL 0.1 MG TABLET PO ONE (14:15)
[2017-08-11] MEDS: NICOTINE POLACRILEX 2 MG GUM BUC PRN (19:06)
[2017-08-11] MEDS: DOCUSATE SODIUM 100 MG CAPSULE (FP) PO PRN (21:04)
[2017-08-11] MEDS: MELATONIN 5 MG TABLETS PO PRN (21:04)
[2017-08-11] MEDS: THIAMINE HCL 100 MG TABLET (FP) PO SCH (21:05)
[2017-08-11] MEDS: PATIENT'S OWN MEDICATION (NON-FORMULARY) (Mirtazapine [Remeron -] 15 MG) PO SCH (21:05)
[2017-08-12] MEDS ORDERED: METHADONE HCL 10 MG TABLET ONE (04:06)
[2017-08-12] MEDS ORDERED: METHADONE HCL 40 MG DISPERSABLE TABLET ONE (04:06)
[2017-08-12] MEDS ORDERED: METHADONE 40 MG, METHADONE 30 MG PO SCH (06:00)
[2017-08-12] MEDS: hydrOXYzine PAMOATE 50 MG CAPSULE (FP) PO PRN (06:31)
[2017-08-12 06:38] VITALS: BP 129/73; PULSE 83
[2017-08-12] MEDS: HALOPERIDOL PO SCH (09:56)
[2017-08-12] MEDS: PRENATAL VITAMINS W/ FOLIC ACID TABLET (FP) PO SCH (09:57)
[2017-08-12] MEDS: NICOTINE 14 MG/24 HOURS TOPICAL PATCH TD SCH (09:57)
[2017-08-12] MEDS: SERTRALINE HCL 50 MG TABLET (FP) PO SCH (09:57)
--- NOTE | 2017-08-12 09:59 | PN ---
Psychiatric Progress Note Vital Signs: Vital Signs Period Temp Pulse Resp BP Sys/Rashid Pulse Ox Last 24 Hr 97.2 F 83 18-20 129/73 Date of Session: 08/12/17 Chief Complaint:: Discharge Note HPI: Patient addressing Alcohol and Sedative Dependence comorbid with Opioid Dependence on Agonist Therapy, Nicotine Dependence, Schizoaffective Disorder, Substance-Induced Mood Disorder and Substance-Induced Sleep Disorder Current Medications: Active Medications Generic Name Dose Route Start Last Admin Trade Name Freq PRN Reason Stop Dose Admin Acetaminophen 650 mg 08/04/17 21:44 Tylenol - PO Q4H PRN FEVER Al Hydroxide/Mg Hydroxide 30 ml 08/04/17 21:44 Mylanta Oral Suspension - PO Q6H PRN DYSPEPSIA Albuterol Sulfate 2 puff 08/04/17 21:43 08/11/17 21:04 Ventolin Hfa Inhaler - IH 2 puff Q4H PRN Administration WHEEZING Docusate Sodium 100 mg 08/06/17 13:09 08/11/17 21:04 Colace - PO 100 mg BID PRN Administration CONSTIPATION Eucalyptus/Menthol/Phenol/Sorbitol 1 each 08/04/17 21:44 Cepastat Lozenge - MM Q4H PRN SORE THROAT Guaifenesin 10 ml 08/04/17 21:44 Robitussin Dm - PO Q6H PRN COUGH Hydroxyzine Pamoate 50 mg 08/04/17 21:44 08/12/17 06:31 Vistaril - PO 50 mg Q4H PRN Administration AGITATION Ibuprofen 400 mg 08/04/17 21:44 Motrin - PO Q6H PRN Pain level 4-6 Loperamide HCl 4 mg 08/04/17 21:44 Imodium - PO Q6H PRN DIARRHEA Magnesium Citrate 300 ml 08/04/17 21:44 Citroma - PO Q48H PRN CONSTIPATION Magnesium Hydroxide 30 ml 08/04/17 21:44 Milk Of Magnesia - PO DAILY PRN CONSTIPATION Melatonin 5 mg 08/04/17 22:00 08/11/17 21:04 Melatonin PO 5 mg HS PRN Administration INSOMNIA Methadone HCl 40 mg/ Methadone 70 mg 08/12/17 06:00 08/12/17 06:29 HCl 30 mg PO 08/18/17 05:59 70 mg DAILY@0600 GRECIA Administration Nicotine 14 mg 08/05/17 10:00 08/11/17 09:40 Nicoderm Patch - TD Not Given DAILY GRECIA Nicotine Polacrilex 2 mg 08/04/17 21:44 08/11/17 19:06 Nicorette Gum - BUC 2 mg Q2H PRN Administration NICOTINE REPLACEMENT RX Non-Formulary Medication 5 mg 08/05/17 15:00 08/11/17 21:05 Haloperidol [Haldol -] PO 5 mg BID GRECIA Administration Non-Formulary Medication 15 mg 08/05/17 22:00 08/11/17 21:05 Mirtazapine [Remeron -] PO 15 mg HS GRECIA Administration Multivit/Folic Acid/Iron 1 tab 08/05/17 10:00 08/11/17 09:39 Vitamins (Sjr) - PO 1 tab DAILY GRECIA Administration Pseudoephedrine/Triprolidine 1 combo 08/04/17 21:44 Actifed - PO TID PRN NASAL CONGESTION Sertraline HCl 100 mg 08/09/17 22:00 08/11/17 21:04 Zoloft - PO 100 mg BID GRECIA Administration Thiamine HCl 100 mg 08/04/17 22:00 08/11/17 21:05 Vitamin B1 - PO 100 mg HS GRECIA Administration Current Side Effect: No Lab tests ordered: Yes Lab tests reviewed: Yes Provider note:: Patient has completed this program on 08/12/17. He has met his treatment goals and will continue to address his issues in outpatient treatment at [facility]. Told underwriter mortgage loan that from his participation in this program, he has learned the importance of implementing the 12 step in his quest for abstinence. He responded well to Zoloft 100 mg po BID, Remeron 15 mg po HS and Haldol 5 mg po BID. Scripts for these medications are electronically transmitted to [facility]. He is stable for discharge today Total face to face time:: 35 Mental Status Exam - Mental Status Exam Alert and Oriented to: Time, Place, Person Cognitive Function: Fair Patient Appearance: Well Groomed Mood: Hopeful, Euthymic Affect: Appropriate Patient Behavior: Cooperative Speech Pattern: Clear Voice Loudness: Normal Thought Process: Intact, Goal Oriented Thought Disorder: Not Present Hallucinations: Denies Suicidal Ideation: Denies Homicidal Ideation: Denies Insight/Judgement: Fair Sleep: Fair Appetite: Good Muscle strength/Tone: Normal Gait/Station: Normal Psychiatric Treatment Plan - Problem List (1) Alcohol dependence Current Visit: No (2) Sedative hypnotic or anxiolytic dependence Current Visit: Yes (3) Opioid dependence on agonist therapy Current Visit: No (4) Nicotine dependence Current Visit: No Qualifiers: Nicotine product type: cigarettes Substance use status: uncomplicated Qualified Code(s): F17.210 - Nicotine dependence, cigarettes, uncomplicated (5) Schizoaffective disorder Current Visit: No (6) Bipolar I disorder, most recent episode depressed Current Visit: No (7) Substance induced mood disorder Current Visit: Yes (8) Substance-induced sleep disorder Current Visit: Yes (9) Asthma Current Visit: Yes Qualifiers: Asthma severity: mild Asthma persistence: intermittent Asthma complication type: uncomplicated Qualified Code(s): J45.20 - Mild intermittent asthma, uncomplicated (10) Benzodiazepine withdrawal Current Visit: No Qualifiers: Complication of substance-induced condition: uncomplicated Qualified Code(s ): F13.230 - Sedative, hypnotic or anxiolytic dependence with withdrawal, uncomplicated (11) Obesity, Class III, BMI 40-49.9 (morbid obesity) Current Visit: No Initial treatment plan: Patient is discharged today and referred to [facility] for outpatient treatment
== END 2017-08-12 09:28 | disposition home or self-care (01) | DRG 772 ==
LOC: YASAS 16:04 → Y3W 18:26
PROVIDERS: ADMIT Psychiatry & Neurology Psychiatry; ATTEND Psychiatry & Neurology Psychiatry
PROC: HZ42ZZZ Group Counseling for Substance Abuse Treatment, Cognitive-Behavioral (ICD-10-PCS; principal; 2017-08-04)
DX: F11.20 Opioid dependence, uncomplicated (principal); F13.230 Sedative, hypnotic or anxiolytic dependence with withdrawal, uncomplicated; F10.230 Alcohol dependence with withdrawal, uncomplicated; F17.210 Nicotine dependence, cigarettes, uncomplicated; F25.9 Schizoaffective disorder, unspecified; F19.24 Other psychoactive substance dependence with psychoactive substance-induced mood disorder; F19.282 Other psychoactive substance dependence with psychoactive substance-induced sleep disorder; J45.20 Mild intermittent asthma, uncomplicated; F31.30 Bipolar disorder, current episode depressed, mild or moderate severity, unspecified; E66.01 Morbid (severe) obesity due to excess calories; Z68.42 Body mass index [BMI] 45.0-49.9, adult
CPT/HCPCS: 36415; 80053; 81003; 85027; 86593; 93005; 93010; J0735

== ENCOUNTER 2023-04-28 11:58 | Inpatient (IN) | payer OTHER ==
[2023-04-28 12:49] VITALS: BMI 33.8
[2023-04-28] MEDS ORDERED: BISMUTH SUBSALICYLATE 262 MG/15 ML BTL PO PRN (15:50)
[2023-04-28] MEDS ORDERED: NALOXONE HCL 0.4 MG/ML VIAL IM PRN (15:50)
[2023-04-28] MEDS ORDERED: BENZONATATE 200 MG CAPSULE PO PRN (15:50)
[2023-04-28] MEDS ORDERED: MAG HYDROX/AL HYDROX/SIMETH 30 ML UNIT-DOSE CUP PO PRN (15:50)
[2023-04-28] MEDS ORDERED: guaiFENesin 600 MG TABLET.ER (FP) PO PRN (15:50)
[2023-04-28] MEDS ORDERED: IBUPROFEN 400 MG TABLET (FP) PO PRN (15:50)
[2023-04-28] MEDS ORDERED: IBUPROFEN 600 MG TABLET (FP) PO PRN (15:50)
[2023-04-28] MEDS ORDERED: POLYETHYLENE GLYCOL (HEALTHYLAX) 3350 17 GM PACKET PO PRN (15:50)
[2023-04-28] MEDS ORDERED: BENZOCAINE/MENTHOL (CHLORASEPTIC ) LOZENGE MM PRN (15:50)
[2023-04-28] MEDS ORDERED: ACETAMINOPHEN 325 MG TABLET (FP) PO PRN (15:50)
[2023-04-28] MEDS ORDERED: ONDANSETRON *ODT* 4 MG TABLET SL PRN (15:50)
[2023-04-28] MEDS ORDERED: NALOXONE HCL (KLOXXADO) 8 MG SPRAY NS PRN (15:50)
[2023-04-28] MEDS ORDERED: LOPERAMIDE HCL 2 MG CAPSULE PO PRN (15:50)
[2023-04-28] MEDS ORDERED: NICOTINE POLACRILEX 2 MG GUM BUC PRN (15:50)
[2023-04-28] MEDS ORDERED: MAGNESIUM HYDROX 2400MG/30ML ORAL SUSPENSION 30 ML CUP PO PRN (15:50)
[2023-04-28] MEDS ORDERED: ALBUTEROL SO4 HFA INHALER IH PRN (20:29)
[2023-04-28] MEDS: hydrOXYzine PAMOATE 25 MG CAPSULE (FP) PO PRN (22:26)
[2023-04-28] MEDS: THIAMINE HCL 100 MG TABLET (FP) PO SCH (22:26)
[2023-04-28] MEDS: MELATONIN 5 MG TABLETS PO SCH (22:26)
[2023-04-29] MEDS ORDERED: methaDONE HCL 10 MG TABLET PO SCH (07:48)
[2023-04-29] MEDS: methaDONE 40 MG, methaDONE 10 MG PO SCH (08:24)
[2023-04-29 08:25] LABS: MCH 27.1 pg (25.7-33.7); MCHC 31.7 g/dl (32.0-35.9); MEAN CELL VOLUME 85.5 fl (80-96); PLATELET COUNT 132 10^3/uL (134-434); RBC 4.79 M/mm3 (4.00-5.60); RDW 14.4 % (11.9-15.9); WHITE BLOOD COUNT 5.7 K/mm3 (4.0-10.0)
[2023-04-29 08:28] LABS: CHLORIDE 107 mmol/L (98-107); POTASSIUM 4.4 mmol/L (3.5-5.1); SODIUM 142 mmol/L (136-145)
[2023-04-29 08:34] LABS: ANION GAP 4 mmol/L (4-13); BLOOD UREA NITROGEN 17.1 mg/dL (7-18); CO2 31 mmol/L (21-32); GLUCOSE,RANDOM 95 mg/dL (74-106)
[2023-04-29 08:36] LABS: SGPT/ALT 106 U/L (13-61)
[2023-04-29 08:37] LABS: CREATININE 0.7 mg/dL (0.55-1.3); SGOT/AST 107 U/L (15-37)
[2023-04-29 08:38] LABS: BILIRUBIN,TOTAL 0.5 mg/dL (0.2-1); TOT PROT 6.6 g/dl (6.4-8.2)
[2023-04-29 08:39] LABS: ALK PHOS 223 U/L (45-117)
[2023-04-29] MEDS ORDERED: chlordiazePOXIDE HCL 25 MG CAPSULE PO PRN (09:06)
[2023-04-29] MEDS: PRENATAL VITAMINS W/ FOLIC ACID TABLET (FP) PO SCH (09:15)
[2023-04-29] MEDS: FERROUS SO4 325 MG TABLET (FP) PO SCH (09:15)
[2023-04-29] MEDS: hydrOXYzine PAMOATE 25 MG CAPSULE (FP) PO PRN (09:15)
[2023-04-29] MEDS: METHOCARBAMOL 500 MG TABLET PO PRN (09:15)
[2023-04-29] MEDS: NICOTINE 14 MG/24 HOURS TOPICAL PATCH TD SCH (09:17)
[2023-04-29] MEDS ORDERED: LORazepam 1 MG TABLET PO PRN (10:07)
[2023-04-29] MEDS ORDERED: chlordiazePOXIDE HCL 25 MG CAPSULE PO SCH (11:00)
[2023-04-29] MEDS: LORazepam 2 MG TABLET PO SCH ×2 (11:10→17:51)
[2023-04-29] MEDS ORDERED: HALOPERIDOL 5 MG TABLET PO SCH (11:30)
[2023-04-29] MEDS ORDERED: ESCITALOPRAM OXALATE 10 MG TABLET ONE (11:50)
[2023-04-29] MEDS: ESCITALOPRAM OXALATE 20 MG TABLET PO SCH (11:54)
[2023-04-29] MEDS: ARIPiprazole 15 MG TABLET PO SCH (11:54)
[2023-04-29] MEDS: diazePAM 5 MG TABLET PO SCH ×2 (17:19→22:23)
[2023-04-29] MEDS: THIAMINE HCL 100 MG TABLET (FP) PO SCH (22:23)
[2023-04-29] MEDS: DOXEPIN HCL 10 MG CAPSULE PO SCH (22:23)
[2023-04-29] MEDS: SUVOREXANT 10 MG TABLET PO PRN (22:24)
[2023-04-30] MEDS: MELATONIN 5 MG TABLETS PO SCH ×2 (00:18→22:07)
[2023-04-30] MEDS ORDERED: LORazepam 1 MG TABLET PO SCH (05:00)
[2023-04-30] MEDS ORDERED: chlordiazePOXIDE HCL 25 MG CAPSULE PO SCH (05:00)
[2023-04-30] MEDS: methaDONE 40 MG, methaDONE 10 MG PO SCH (05:30)
[2023-04-30] MEDS: diazePAM 5 MG TABLET PO SCH ×4 (05:30→22:08)
[2023-04-30] MEDS ORDERED: ESCITALOPRAM OXALATE 10 MG TABLET ONE (09:21)
[2023-04-30] MEDS: PRENATAL VITAMINS W/ FOLIC ACID TABLET (FP) PO SCH (10:20)
[2023-04-30] MEDS: ARIPiprazole 15 MG TABLET PO SCH (10:21)
[2023-04-30] MEDS: FERROUS SO4 325 MG TABLET (FP) PO SCH (10:21)
[2023-04-30] MEDS: ESCITALOPRAM OXALATE 20 MG TABLET PO SCH (10:21)
[2023-04-30] MEDS: NICOTINE 14 MG/24 HOURS TOPICAL PATCH TD SCH (10:22)
[2023-04-30] MEDS: THIAMINE HCL 100 MG TABLET (FP) PO SCH (22:07)
[2023-04-30] MEDS: DOXEPIN HCL 10 MG CAPSULE PO SCH (22:07)
[2023-05-01] MEDS ORDERED: chlordiazePOXIDE HCL 10 MG CAPSULE PO PRN
[2023-05-01] MEDS ORDERED: LORazepam 0.5 MG TABLET PO PRN
[2023-05-01] MEDS ORDERED: chlordiazePOXIDE HCL 10 MG CAPSULE PO SCH (05:00)
[2023-05-01] MEDS ORDERED: LORazepam 0.5 MG TABLET PO SCH (05:00)
[2023-05-01] MEDS: methaDONE 40 MG, methaDONE 10 MG PO SCH (05:47)
[2023-05-01] MEDS: diazePAM 5 MG TABLET PO SCH ×3 (05:47→22:10)
[2023-05-01] MEDS ORDERED: ESCITALOPRAM OXALATE 10 MG TABLET ONE (09:24)
[2023-05-01] MEDS: FERROUS SO4 325 MG TABLET (FP) PO SCH (09:46)
[2023-05-01] MEDS: ARIPiprazole 15 MG TABLET PO SCH (09:46)
[2023-05-01] MEDS: ESCITALOPRAM OXALATE 20 MG TABLET PO SCH (09:47)
[2023-05-01] MEDS: NICOTINE 14 MG/24 HOURS TOPICAL PATCH TD SCH (09:48)
[2023-05-01] MEDS: PRENATAL VITAMINS W/ FOLIC ACID TABLET (FP) PO SCH (09:48)
[2023-05-01] MEDS: THIAMINE HCL 100 MG TABLET (FP) PO SCH (22:10)
[2023-05-01] MEDS: DOXEPIN HCL 10 MG CAPSULE PO SCH (22:11)
[2023-05-01] MEDS: SUVOREXANT 10 MG TABLET PO PRN (22:12)
[2023-05-01] MEDS: MELATONIN 5 MG TABLETS PO SCH (22:14)
[2023-05-02] MEDS ORDERED: chlordiazePOXIDE HCL 10 MG CAPSULE PO SCH (05:00)
[2023-05-02] MEDS ORDERED: LORazepam 0.5 MG TABLET PO ONE (05:00)
[2023-05-02] MEDS: methaDONE 40 MG, methaDONE 10 MG PO SCH (05:23)
[2023-05-02] MEDS: diazePAM 5 MG TABLET PO SCH ×2 (05:23→17:43)
[2023-05-02] MEDS: ARIPiprazole 15 MG TABLET PO SCH (09:40)
[2023-05-02] MEDS: ESCITALOPRAM OXALATE 20 MG TABLET PO SCH (09:40)
[2023-05-02] MEDS: FERROUS SO4 325 MG TABLET (FP) PO SCH (09:40)
[2023-05-02] MEDS: PRENATAL VITAMINS W/ FOLIC ACID TABLET (FP) PO SCH (09:41)
[2023-05-02] MEDS: NICOTINE 14 MG/24 HOURS TOPICAL PATCH TD SCH (09:42)
[2023-05-02] MEDS: hydrOXYzine PAMOATE 25 MG CAPSULE (FP) PO PRN (11:06)
[2023-05-02] MEDS: DOCUSATE SODIUM 100 MG CAPSULE (FP) PO SCH ×2 (13:11→22:42)
[2023-05-02] MEDS: METHOCARBAMOL 500 MG TABLET PO PRN ×2 (17:44→22:44)
[2023-05-02] MEDS: DOXEPIN HCL 10 MG CAPSULE PO SCH (22:42)
[2023-05-02] MEDS: MELATONIN 5 MG TABLETS PO SCH (22:42)
[2023-05-02] MEDS: THIAMINE HCL 100 MG TABLET (FP) PO SCH (22:42)
[2023-05-03] MEDS ORDERED: chlordiazePOXIDE HCL 10 MG CAPSULE PO ONE (05:00)
[2023-05-03] MEDS: methaDONE 40 MG, methaDONE 10 MG PO SCH (05:35)
[2023-05-03] MEDS: DOCUSATE SODIUM 100 MG CAPSULE (FP) PO SCH ×2 (05:35→13:25)
[2023-05-03] MEDS ORDERED: diazePAM 5 MG TABLET PO ONE (06:00)
[2023-05-03] MEDS ORDERED: LORazepam 0.5 MG TABLET PO ONE (06:00)
[2023-05-03] MEDS ORDERED: ESCITALOPRAM OXALATE 10 MG TABLET ONE (09:22)
[2023-05-03] MEDS: ARIPiprazole 15 MG TABLET PO SCH (10:10)
[2023-05-03] MEDS: FERROUS SO4 325 MG TABLET (FP) PO SCH (10:10)
[2023-05-03] MEDS: PRENATAL VITAMINS W/ FOLIC ACID TABLET (FP) PO SCH (10:10)
[2023-05-03] MEDS: NICOTINE 14 MG/24 HOURS TOPICAL PATCH TD SCH (10:11)
[2023-05-03] MEDS: ESCITALOPRAM OXALATE 20 MG TABLET PO SCH (10:11)
[2023-05-03] MEDS: hydrOXYzine PAMOATE 25 MG CAPSULE (FP) PO PRN (10:15)
[2023-05-03] MEDS: METHOCARBAMOL 500 MG TABLET PO PRN (10:15)
[2023-05-03 12:59] VITALS: BP 92/62; PULSE 60; RESP 18; TEMP 97.7
== END 2023-05-03 12:18 | disposition other institution (70) | DRG 773 ==
LOC: YASAS 11:58 → Y6N 16:24 → Y3W 05-03 12:33
PROVIDERS: ADMIT Allergy & Immunology; ATTEND Surgery
PROC: HZ2ZZZZ Detoxification Services for Substance Abuse Treatment (ICD-10-PCS; principal; 2023-04-28)
DX: F10.230 Alcohol dependence with withdrawal, uncomplicated (principal); F11.20 Opioid dependence, uncomplicated; F14.20 Cocaine dependence, uncomplicated; F17.210 Nicotine dependence, cigarettes, uncomplicated; F25.1 Schizoaffective disorder, depressive type; F19.280 Other psychoactive substance dependence with psychoactive substance-induced anxiety disorder; F19.282 Other psychoactive substance dependence with psychoactive substance-induced sleep disorder; F19.24 Other psychoactive substance dependence with psychoactive substance-induced mood disorder; G47.00 Insomnia, unspecified; J45.20 Mild intermittent asthma, uncomplicated; R74.8 Abnormal levels of other serum enzymes; Z86.69 Personal history of other diseases of the nervous system and sense organs; Z62.810 Personal history of physical and sexual abuse in childhood
CPT/HCPCS: 36415; 80053; 80307; 84080; 84450; 85027; 86780; 87635; 93005; 93010

== ENCOUNTER 2023-05-03 13:35 | Inpatient (IN) | payer OTHER ==
[~2023-05-03 13:35] MED LIST: ALBUTEROL SO4 HFA INHALER IH PRN; BENZONATATE 200 MG CAPSULE PO PRN; COLLOIDAL OATMEAL 1 BAR EACH TP PRN; IBUPROFEN 400 MG TABLET (FP) PO PRN; LOPERAMIDE HCL 2 MG CAPSULE PO PRN; MAGNESIUM HYDROX 2400MG/30ML ORAL SUSPENSION 30 ML CUP PO PRN; NALOXONE HCL (KLOXXADO) 8 MG SPRAY NS PRN; NALOXONE HCL 0.4 MG/ML VIAL IVPUSH PRN; NICOTINE POLACRILEX 2 MG GUM BUC PRN; POLYETHYLENE GLYCOL (HEALTHYLAX) 3350 17 GM PACKET PO PRN; guaiFENesin 600 MG TABLET.ER (FP) PO PRN
[2023-05-03] MEDS: MELATONIN 5 MG TABLETS PO SCH (21:21)
[2023-05-03] MEDS: THIAMINE HCL 100 MG TABLET (FP) PO SCH (21:21)
[2023-05-03] MEDS: DOXEPIN HCL 10 MG CAPSULE PO SCH (21:22)
[2023-05-03] MEDS ORDERED: SUVOREXANT 10 MG TABLET PO PRN (22:00)
[2023-05-04] MEDS ORDERED: methaDONE HCL 10 MG TABLET PO SCH (06:00)
[2023-05-04] MEDS: methaDONE 40 MG, methaDONE 10 MG PO SCH (06:15)
[2023-05-04] MEDS: ESCITALOPRAM OXALATE 20 MG TABLET PO SCH (09:55)
[2023-05-04] MEDS: ARIPiprazole 15 MG TABLET PO SCH (09:55)
[2023-05-04] MEDS: NICOTINE 14 MG/24 HOURS TOPICAL PATCH TD SCH (09:55)
[2023-05-04] MEDS: PRENATAL VITAMINS W/ FOLIC ACID TABLET (FP) PO SCH (09:55)
[2023-05-04] MEDS ORDERED: HALOPERIDOL 5 MG TABLET PO SCH (10:00)
[2023-05-04] MEDS: DOXEPIN HCL 10 MG CAPSULE PO SCH (21:12)
[2023-05-04] MEDS: THIAMINE HCL 100 MG TABLET (FP) PO SCH (21:12)
[2023-05-04] MEDS: ACETAMINOPHEN 325 MG TABLET (FP) PO PRN (21:12)
[2023-05-04] MEDS: MELATONIN 5 MG TABLETS PO SCH (21:12)
[2023-05-05] MEDS: hydrOXYzine PAMOATE 25 MG CAPSULE (FP) PO PRN (01:11)
[2023-05-05] MEDS: METHOCARBAMOL 500 MG TABLET PO PRN (01:11)
[2023-05-05] MEDS: methaDONE 40 MG, methaDONE 10 MG PO SCH (06:11)
[2023-05-05] MEDS: BENZOCAINE/MENTHOL (CHLORASEPTIC ) LOZENGE MM PRN ×2 (06:13→09:37)
[2023-05-05] MEDS ORDERED: ESCITALOPRAM OXALATE 10 MG TABLET ONE (08:46)
[2023-05-05] MEDS: ESCITALOPRAM OXALATE 20 MG TABLET PO SCH (09:35)
[2023-05-05] MEDS: PRENATAL VITAMINS W/ FOLIC ACID TABLET (FP) PO SCH (09:35)
[2023-05-05] MEDS: NICOTINE 14 MG/24 HOURS TOPICAL PATCH TD SCH (09:35)
[2023-05-05] MEDS: ARIPiprazole 15 MG TABLET PO SCH (09:36)
[2023-05-05] MEDS: IBUPROFEN 600 MG TABLET (FP) PO PRN ×2 (11:46→21:50)
[2023-05-05] MEDS ORDERED: P-EPHED 60MG/TRIPROLIDI 2.5MG TABLET PO PRN (14:36)
[2023-05-05] MEDS: SUVOREXANT 10 MG TABLET PO PRN (21:13)
[2023-05-05] MEDS: THIAMINE HCL 100 MG TABLET (FP) PO SCH (21:13)
[2023-05-05] MEDS: MELATONIN 5 MG TABLETS PO SCH (21:13)
[2023-05-05] MEDS: DOXEPIN HCL 10 MG CAPSULE PO SCH (21:13)
[2023-05-05] MEDS: MAG HYDROX/AL HYDROX/SIMETH 30 ML UNIT-DOSE CUP PO PRN (21:13)
[2023-05-06] MEDS: methaDONE 40 MG, methaDONE 10 MG PO SCH (06:05)
[2023-05-06] MEDS: IBUPROFEN 600 MG TABLET (FP) PO PRN (06:39)
[2023-05-06] MEDS: hydrOXYzine PAMOATE 25 MG CAPSULE (FP) PO PRN (06:40)
[2023-05-06] MEDS: ARIPiprazole 15 MG TABLET PO SCH (10:05)
[2023-05-06] MEDS: NICOTINE 14 MG/24 HOURS TOPICAL PATCH TD SCH (10:05)
[2023-05-06] MEDS: PRENATAL VITAMINS W/ FOLIC ACID TABLET (FP) PO SCH (10:05)
[2023-05-06] MEDS: ESCITALOPRAM OXALATE 20 MG TABLET PO SCH (10:05)
[2023-05-06] MEDS: DOXEPIN HCL 10 MG CAPSULE PO SCH (21:21)
[2023-05-06] MEDS: MELATONIN 5 MG TABLETS PO SCH (21:21)
[2023-05-06] MEDS: THIAMINE HCL 100 MG TABLET (FP) PO SCH (21:21)
[2023-05-06] MEDS: SUVOREXANT 10 MG TABLET PO PRN (21:21)
[2023-05-07] MEDS: ACETAMINOPHEN 325 MG TABLET (FP) PO PRN (03:29)
[2023-05-07] MEDS: methaDONE 40 MG, methaDONE 10 MG PO SCH (05:57)
[2023-05-07] MEDS ORDERED: ESCITALOPRAM OXALATE 10 MG TABLET ONE (09:08)
[2023-05-07] MEDS: ESCITALOPRAM OXALATE 20 MG TABLET PO SCH (10:12)
[2023-05-07] MEDS: NICOTINE 14 MG/24 HOURS TOPICAL PATCH TD SCH (10:12)
[2023-05-07] MEDS: PRENATAL VITAMINS W/ FOLIC ACID TABLET (FP) PO SCH (10:12)
[2023-05-07] MEDS: ARIPiprazole 15 MG TABLET PO SCH (10:12)
[2023-05-07] MEDS: MAG HYDROX/AL HYDROX/SIMETH 30 ML UNIT-DOSE CUP PO PRN (15:57)
[2023-05-07] MEDS: THIAMINE HCL 100 MG TABLET (FP) PO SCH (21:09)
[2023-05-07] MEDS: MELATONIN 5 MG TABLETS PO SCH (21:09)
[2023-05-07] MEDS: DOXEPIN HCL 10 MG CAPSULE PO SCH (21:09)
[2023-05-07] MEDS: SUVOREXANT 10 MG TABLET PO PRN (21:10)
[2023-05-08] MEDS: methaDONE 40 MG, methaDONE 10 MG PO SCH (06:30)
[2023-05-08] MEDS: hydrOXYzine PAMOATE 25 MG CAPSULE (FP) PO PRN (06:46)
[2023-05-08] MEDS ORDERED: ESCITALOPRAM OXALATE 10 MG TABLET ONE (09:20)
[2023-05-08] MEDS: PRENATAL VITAMINS W/ FOLIC ACID TABLET (FP) PO SCH (10:13)
[2023-05-08] MEDS: ESCITALOPRAM OXALATE 20 MG TABLET PO SCH (10:13)
[2023-05-08] MEDS: ARIPiprazole 15 MG TABLET PO SCH (10:13)
[2023-05-08] MEDS: NICOTINE 14 MG/24 HOURS TOPICAL PATCH TD SCH (10:14)
[2023-05-08] MEDS: SUVOREXANT 10 MG TABLET PO PRN (21:06)
[2023-05-08] MEDS: MELATONIN 5 MG TABLETS PO SCH (21:07)
[2023-05-08] MEDS: DOXEPIN HCL 10 MG CAPSULE PO SCH (21:07)
[2023-05-08] MEDS: THIAMINE HCL 100 MG TABLET (FP) PO SCH (21:07)
[2023-05-09] MEDS: IBUPROFEN 600 MG TABLET (FP) PO PRN (03:51)
[2023-05-09] MEDS: methaDONE 40 MG, methaDONE 10 MG PO SCH (05:54)
[2023-05-09] MEDS ORDERED: ESCITALOPRAM OXALATE 10 MG TABLET ONE (09:18)
[2023-05-09] MEDS: PRENATAL VITAMINS W/ FOLIC ACID TABLET (FP) PO SCH (10:01)
[2023-05-09] MEDS: ARIPiprazole 15 MG TABLET PO SCH (10:01)
[2023-05-09] MEDS: NICOTINE 14 MG/24 HOURS TOPICAL PATCH TD SCH (10:02)
[2023-05-09] MEDS: METHOCARBAMOL 500 MG TABLET PO PRN ×2 (10:04→21:00)
[2023-05-09] MEDS: hydrOXYzine PAMOATE 25 MG CAPSULE (FP) PO PRN ×2 (10:04→18:22)
[2023-05-09] MEDS: ESCITALOPRAM OXALATE 20 MG TABLET PO SCH (10:06)
[2023-05-09] MEDS: MELATONIN 5 MG TABLETS PO SCH (21:01)
[2023-05-09] MEDS: DOXEPIN HCL 10 MG CAPSULE PO SCH (21:01)
[2023-05-09] MEDS: THIAMINE HCL 100 MG TABLET (FP) PO SCH (21:01)
[2023-05-09] MEDS: SUVOREXANT 10 MG TABLET PO PRN (21:02)
[2023-05-10] MEDS: methaDONE 40 MG, methaDONE 10 MG PO SCH (05:58)
[2023-05-10] MEDS ORDERED: ESCITALOPRAM OXALATE 10 MG TABLET ONE (08:53)
[2023-05-10] MEDS: NICOTINE 14 MG/24 HOURS TOPICAL PATCH TD SCH (09:58)
[2023-05-10] MEDS: PRENATAL VITAMINS W/ FOLIC ACID TABLET (FP) PO SCH (09:58)
[2023-05-10] MEDS: ARIPiprazole 15 MG TABLET PO SCH (09:59)
[2023-05-10] MEDS: ESCITALOPRAM OXALATE 20 MG TABLET PO SCH (09:59)
[2023-05-10] MEDS ORDERED: HALOPERIDOL 2 MG TABLET PO SCH (10:30)
[2023-05-10] MEDS: MELATONIN 5 MG TABLETS PO SCH (21:09)
[2023-05-10] MEDS: THIAMINE HCL 100 MG TABLET (FP) PO SCH (21:09)
[2023-05-10] MEDS: HALOPERIDOL 5 MG TABLET PO SCH (21:10)
[2023-05-10] MEDS: DOXEPIN HCL 10 MG CAPSULE PO SCH (21:10)
[2023-05-10] MEDS: SUVOREXANT 10 MG TABLET PO PRN (21:10)
[2023-05-10] MEDS: MAG HYDROX/AL HYDROX/SIMETH 30 ML UNIT-DOSE CUP PO PRN (21:30)
[2023-05-10] MEDS ORDERED: HALOPERIDOL 5 MG TABLET PO SCH (22:00)
[2023-05-11] MEDS: methaDONE 40 MG, methaDONE 10 MG PO SCH (05:58)
[2023-05-11] MEDS: hydrOXYzine PAMOATE 25 MG CAPSULE (FP) PO PRN (06:41)
[2023-05-11] MEDS ORDERED: ESCITALOPRAM OXALATE 10 MG TABLET ONE (09:01)
[2023-05-11] MEDS: ESCITALOPRAM OXALATE 20 MG TABLET PO SCH (09:55)
[2023-05-11] MEDS: HALOPERIDOL 2 MG TABLET PO SCH (09:56)
[2023-05-11] MEDS: NICOTINE 14 MG/24 HOURS TOPICAL PATCH TD SCH (09:57)
[2023-05-11] MEDS: ARIPiprazole 15 MG TABLET PO SCH (09:57)
[2023-05-11] MEDS: PRENATAL VITAMINS W/ FOLIC ACID TABLET (FP) PO SCH (09:57)
[2023-05-11] MEDS: METHOCARBAMOL 500 MG TABLET PO PRN (12:09)
[2023-05-11] MEDS: THIAMINE HCL 100 MG TABLET (FP) PO SCH (21:08)
[2023-05-11] MEDS: MELATONIN 5 MG TABLETS PO SCH (21:08)
[2023-05-11] MEDS: DOXEPIN HCL 10 MG CAPSULE PO SCH (21:08)
[2023-05-11] MEDS: HALOPERIDOL 5 MG TABLET PO SCH (21:08)
[2023-05-11] MEDS: SUVOREXANT 10 MG TABLET PO PRN (21:09)
[2023-05-12] MEDS: methaDONE 40 MG, methaDONE 10 MG PO SCH (06:11)
[2023-05-12] MEDS: hydrOXYzine PAMOATE 25 MG CAPSULE (FP) PO PRN (06:12)
[2023-05-12] MEDS: PRENATAL VITAMINS W/ FOLIC ACID TABLET (FP) PO SCH (09:29)
[2023-05-12] MEDS: ESCITALOPRAM OXALATE 20 MG TABLET PO SCH (09:29)
[2023-05-12] MEDS: HALOPERIDOL 2 MG TABLET PO SCH (09:29)
[2023-05-12] MEDS: NICOTINE 14 MG/24 HOURS TOPICAL PATCH TD SCH (09:29)
[2023-05-12] MEDS: ARIPiprazole 15 MG TABLET PO SCH (09:29)
[2023-05-12] MEDS: THIAMINE HCL 100 MG TABLET (FP) PO SCH (21:13)
[2023-05-12] MEDS: SUVOREXANT 10 MG TABLET PO PRN (21:13)
[2023-05-12] MEDS: HALOPERIDOL 5 MG TABLET PO SCH (21:13)
[2023-05-12] MEDS: MELATONIN 5 MG TABLETS PO SCH (21:13)
[2023-05-12] MEDS: DOXEPIN HCL 10 MG CAPSULE PO SCH (21:13)
[2023-05-12] MEDS ORDERED: SUVOREXANT 10 MG TABLET PO PRN (22:00)
[2023-05-13] MEDS: methaDONE 40 MG, methaDONE 10 MG PO SCH (05:48)
[2023-05-13] MEDS ORDERED: ESCITALOPRAM OXALATE 10 MG TABLET ONE (08:52)
[2023-05-13] MEDS: ESCITALOPRAM OXALATE 20 MG TABLET PO SCH (10:04)
[2023-05-13] MEDS: HALOPERIDOL 2 MG TABLET PO SCH (10:04)
[2023-05-13] MEDS: PRENATAL VITAMINS W/ FOLIC ACID TABLET (FP) PO SCH (10:04)
[2023-05-13] MEDS: ARIPiprazole 15 MG TABLET PO SCH (10:04)
[2023-05-13] MEDS: NICOTINE 14 MG/24 HOURS TOPICAL PATCH TD SCH (10:04)
[2023-05-13] MEDS: SUVOREXANT 10 MG TABLET PO PRN (21:20)
[2023-05-13] MEDS: THIAMINE HCL 100 MG TABLET (FP) PO SCH (21:20)
[2023-05-13] MEDS: DOXEPIN HCL 10 MG CAPSULE PO SCH (21:21)
[2023-05-13] MEDS: HALOPERIDOL 5 MG TABLET PO SCH (21:21)
[2023-05-13] MEDS: MELATONIN 5 MG TABLETS PO SCH (21:21)
[2023-05-14] MEDS: methaDONE 40 MG, methaDONE 10 MG PO SCH (06:08)
[2023-05-14] MEDS ORDERED: ESCITALOPRAM OXALATE 10 MG TABLET ONE (09:28)
[2023-05-14] MEDS: PRENATAL VITAMINS W/ FOLIC ACID TABLET (FP) PO SCH (10:17)
[2023-05-14] MEDS: ESCITALOPRAM OXALATE 20 MG TABLET PO SCH (10:17)
[2023-05-14] MEDS: HALOPERIDOL 2 MG TABLET PO SCH (10:17)
[2023-05-14] MEDS: NICOTINE 14 MG/24 HOURS TOPICAL PATCH TD SCH (10:17)
[2023-05-14] MEDS: ARIPiprazole 15 MG TABLET PO SCH (10:17)
[2023-05-14] MEDS: METHOCARBAMOL 500 MG TABLET PO PRN (16:05)
[2023-05-14] MEDS: hydrOXYzine PAMOATE 25 MG CAPSULE (FP) PO PRN (16:05)
[2023-05-14] MEDS: DOXEPIN HCL 10 MG CAPSULE PO SCH (21:02)
[2023-05-14] MEDS: HALOPERIDOL 5 MG TABLET PO SCH (21:02)
[2023-05-14] MEDS: MELATONIN 5 MG TABLETS PO SCH (21:02)
[2023-05-14] MEDS: SUVOREXANT 10 MG TABLET PO PRN (21:03)
[2023-05-14] MEDS: THIAMINE HCL 100 MG TABLET (FP) PO SCH (21:03)
[2023-05-15] MEDS: methaDONE 40 MG, methaDONE 10 MG PO SCH (05:48)
[2023-05-15] MEDS: hydrOXYzine PAMOATE 25 MG CAPSULE (FP) PO PRN ×2 (06:31→17:47)
[2023-05-15] MEDS ORDERED: ESCITALOPRAM OXALATE 10 MG TABLET ONE (08:53)
[2023-05-15] MEDS: ESCITALOPRAM OXALATE 20 MG TABLET PO SCH (10:02)
[2023-05-15] MEDS: HALOPERIDOL 2 MG TABLET PO SCH (10:02)
[2023-05-15] MEDS: ARIPiprazole 15 MG TABLET PO SCH (10:02)
[2023-05-15] MEDS: NICOTINE 14 MG/24 HOURS TOPICAL PATCH TD SCH (10:03)
[2023-05-15] MEDS: PRENATAL VITAMINS W/ FOLIC ACID TABLET (FP) PO SCH (10:03)
[2023-05-15] MEDS: METHOCARBAMOL 500 MG TABLET PO PRN (17:47)
[2023-05-15] MEDS: THIAMINE HCL 100 MG TABLET (FP) PO SCH (21:16)
[2023-05-15] MEDS: HALOPERIDOL 5 MG TABLET PO SCH (21:16)
[2023-05-15] MEDS: MELATONIN 5 MG TABLETS PO SCH (21:16)
[2023-05-15] MEDS: SUVOREXANT 10 MG TABLET PO PRN (21:17)
[2023-05-15] MEDS: DOXEPIN HCL 10 MG CAPSULE PO SCH (21:17)
[2023-05-15] MEDS ORDERED: SUVOREXANT 10 MG TABLET PO PRN (22:00)
[2023-05-16] MEDS: hydrOXYzine PAMOATE 25 MG CAPSULE (FP) PO PRN ×2 (05:50→19:11)
[2023-05-16] MEDS: methaDONE 40 MG, methaDONE 10 MG PO SCH (05:50)
[2023-05-16] MEDS: HALOPERIDOL 2 MG TABLET PO SCH (10:30)
[2023-05-16] MEDS: ESCITALOPRAM OXALATE 20 MG TABLET PO SCH (10:30)
[2023-05-16] MEDS: ARIPiprazole 15 MG TABLET PO SCH (10:30)
[2023-05-16] MEDS: NICOTINE 14 MG/24 HOURS TOPICAL PATCH TD SCH (10:30)
[2023-05-16] MEDS: PRENATAL VITAMINS W/ FOLIC ACID TABLET (FP) PO SCH (10:31)
[2023-05-16] MEDS: METHOCARBAMOL 500 MG TABLET PO PRN (19:11)
[2023-05-16] MEDS: THIAMINE HCL 100 MG TABLET (FP) PO SCH (21:18)
[2023-05-16] MEDS: HALOPERIDOL 5 MG TABLET PO SCH (21:18)
[2023-05-16] MEDS: MELATONIN 5 MG TABLETS PO SCH (21:18)
[2023-05-16] MEDS: DOXEPIN HCL 10 MG CAPSULE PO SCH (21:18)
[2023-05-16] MEDS: SUVOREXANT 10 MG TABLET PO PRN (21:18)
[2023-05-16] MEDS ORDERED: SUVOREXANT 10 MG TABLET PO PRN (22:00)
[2023-05-17] MEDS: methaDONE 40 MG, methaDONE 10 MG PO SCH (05:58)
[2023-05-17] MEDS: hydrOXYzine PAMOATE 25 MG CAPSULE (FP) PO PRN (06:00)
[2023-05-17 07:11] VITALS: RESP 16; TEMP 97.1
[2023-05-17 08:58] VITALS: BP 123/53; PULSE 64
[2023-05-17] MEDS ORDERED: ESCITALOPRAM OXALATE 10 MG TABLET ONE (09:08)
[2023-05-17] MEDS: PRENATAL VITAMINS W/ FOLIC ACID TABLET (FP) PO SCH (09:08)
[2023-05-17] MEDS: ESCITALOPRAM OXALATE 20 MG TABLET PO SCH (09:08)
[2023-05-17] MEDS: ARIPiprazole 15 MG TABLET PO SCH (09:09)
[2023-05-17] MEDS: HALOPERIDOL 2 MG TABLET PO SCH (09:09)
== END 2023-05-17 09:14 | disposition home or self-care (01) | DRG 772 ==
LOC: YASAS 13:35 → Y3W 13:37 → Y5N 05-13 13:37
PROVIDERS: ADMIT Allergy & Immunology; ATTEND Psychiatry & Neurology Pain Medicine
PROC: HZ42ZZZ Group Counseling for Substance Abuse Treatment, Cognitive-Behavioral (ICD-10-PCS; principal; 2023-05-03)
DX: F10.20 Alcohol dependence, uncomplicated (principal); F14.20 Cocaine dependence, uncomplicated; F12.20 Cannabis dependence, uncomplicated; F17.210 Nicotine dependence, cigarettes, uncomplicated; F25.9 Schizoaffective disorder, unspecified; F31.9 Bipolar disorder, unspecified; J45.20 Mild intermittent asthma, uncomplicated; J02.9 Acute pharyngitis, unspecified
CPT/HCPCS: 0241U-QW

== ENCOUNTER 2023-11-01 11:13 | Inpatient (IN) | payer OTHER ==
[2023-11-01 11:37] VITALS: BMI 34.4
[2023-11-01] MEDS ORDERED: DICYCLOMINE HCL 10 MG CAPSULE PO PRN (11:51)
[2023-11-01] MEDS ORDERED: LOPERAMIDE HCL 2 MG CAPSULE PO PRN (11:51)
[2023-11-01] MEDS ORDERED: BENZONATATE 200 MG CAPSULE PO PRN (11:51)
[2023-11-01] MEDS ORDERED: NICOTINE POLACRILEX 2 MG LOZENGE BC PRN (11:51)
[2023-11-01] MEDS ORDERED: POLYETHYLENE GLYCOL (HEALTHYLAX) 3350 17 GM PACKET PO PRN (11:51)
[2023-11-01] MEDS ORDERED: BENZOCAINE/MENTHOL (CHLORASEPTIC ) LOZENGE MM PRN (11:51)
[2023-11-01] MEDS ORDERED: ACETAMINOPHEN 325 MG TABLET (FP) PO PRN (11:51)
[2023-11-01] MEDS ORDERED: NALOXONE HCL 0.4 MG/ML VIAL IM PRN (11:51)
[2023-11-01] MEDS ORDERED: BISMUTH SUBSALICYLATE 262 MG/15 ML BTL PO PRN (11:51)
[2023-11-01] MEDS ORDERED: guaiFENesin 600 MG TABLET.ER (FP) PO PRN (11:51)
[2023-11-01] MEDS ORDERED: IBUPROFEN 400 MG TABLET (FP) PO PRN (11:51)
[2023-11-01] MEDS ORDERED: NICOTINE POLACRILEX 2 MG GUM BUC PRN (11:51)
[2023-11-01] MEDS ORDERED: ONDANSETRON *ODT* 4 MG TABLET SL PRN (11:51)
[2023-11-01] MEDS ORDERED: NALOXONE (NARCAN) HCL 4 MG/0.1 ML SPRAY NS PRN (11:51)
[2023-11-01] MEDS ORDERED: MAG HYDROX/AL HYDROX/SIMETH 30 ML UNIT-DOSE CUP PO PRN (11:51)
[2023-11-01] MEDS ORDERED: IBUPROFEN 600 MG TABLET (FP) PO PRN (11:51)
[2023-11-01] MEDS ORDERED: ALBUTEROL SO4 HFA INHALER IH PRN (12:00)
[2023-11-01] MEDS: TRIAMCINOLONE ACET 0.025% OINTMENT 15 GM TUBE TP SCH (16:05)
[2023-11-01] MEDS: THIAMINE 100 MG TABLET PO SCH (22:30)
[2023-11-01] MEDS: MELATONIN 5 MG TABLETS PO SCH (22:30)
[2023-11-01] MEDS: METHOCARBAMOL 500 MG TABLET PO PRN (22:31)
[2023-11-01] MEDS: hydrOXYzine PAMOATE 25 MG CAPSULE (FP) PO PRN (22:31)
[2023-11-02] MEDS: methaDONE 40 MG, methaDONE 10 MG PO SCH (05:51)
[2023-11-02] MEDS ORDERED: methaDONE HCL 40 MG DISPERSABLE TABLET PO SCH ×2 (06:00→10:00)
[2023-11-02] MEDS: methaDONE 40 MG, methaDONE 10 MG PO ONE (08:34)
[2023-11-02] MEDS: LORazepam 2 MG TABLET PO ONE (09:16)
[2023-11-02] MEDS: PRENATAL VITAMINS W/ FOLIC ACID TABLET (FP) PO SCH (09:17)
[2023-11-02 11:18] LABS: HEMATOCRIT 40.9 % (35.4-49); HEMOGLOBIN 13.1 GM/dL (11.7-16.9); MCH 28.1 pg (25.7-33.7); MCHC 31.9 g/dl (32.0-35.9); MEAN CELL VOLUME 88.3 fl (80-96); MEAN PLT VOLUME 8.3 fl (7.5-11.1); PLATELET COUNT 214 10^3/uL (134-434); RBC 4.64 M/mm3 (4.00-5.60); RDW 15.7 % (11.9-15.9); WHITE BLOOD COUNT 5.8 K/mm3 (4.0-10.0)
[2023-11-02 11:19] LABS: POTASSIUM 4.3 mmol/L (3.5-5.1)
[2023-11-02 11:25] LABS: CALCIUM 8.9 mg/dL (8.5-10.1)
[2023-11-02 11:26] LABS: ALBUMIN 2.8 g/dl (3.4-5.0); BLOOD UREA NITROGEN 16.4 mg/dL (7-18)
[2023-11-02 11:28] LABS: CREATININE 0.7 mg/dL (0.55-1.3)
[2023-11-02 11:29] LABS: BILIRUBIN,TOTAL 0.5 mg/dL (0.2-1); TOT PROT 6.2 g/dl (6.4-8.2)
[2023-11-02] MEDS: LORazepam 2 MG TABLET PO SCH (11:52)
[2023-11-02] MEDS: ARTIFICIAL TEARS OPHTHALMIC DROPS OU PRN (14:44)
[2023-11-02] MEDS: diphenhydrAMINE HCL 25 MG CAPSULE (FP) PO PRN (19:29)
[2023-11-02] MEDS: LORazepam 1 MG TABLET PO PRN (20:04)
[2023-11-02] MEDS: HALOPERIDOL 5 MG TABLET PO SCH (21:53)
[2023-11-03] MEDS: methaDONE 40 MG, methaDONE 10 MG PO SCH (05:13)
[2023-11-03] MEDS: ESCITALOPRAM OXALATE 20 MG TABLET PO SCH (09:22)
[2023-11-03] MEDS: ARIPiprazole 15 MG TABLET PO SCH (09:22)
[2023-11-03] MEDS ORDERED: amLODIPine BESYLATE 10 MG TABLET (FP) PO SCH (10:00)
[2023-11-03] MEDS: ERYTHROMYCIN 0.5% OPHTHALMIC OINTMENT 3.5 GM TUBE OU SCH (13:50)
[2023-11-03] MEDS ORDERED: BACITRACIN/POLYMYXIN OPH OINT 3.5 GM TUBE OD SCH (14:00)
[2023-11-04] MEDS: LORazepam 1 MG TABLET PO SCH (05:34)
[2023-11-05] MEDS ORDERED: LORazepam 0.5 MG TABLET PO PRN
[2023-11-05] MEDS: LORazepam 0.5 MG TABLET PO SCH (05:24)
[2023-11-05] MEDS: TETRAHYDROZOLINE HCL EYE DROPS OS PRN (14:52)
[2023-11-06] MEDS: LORazepam 0.5 MG TABLET PO ONE (05:49)
[2023-11-06] MEDS ORDERED: INSULIN (LEVEMIR) 100 UNITS/ML UNITS SQ ONE (11:44)
[2023-11-06] MEDS: MAGNESIUM HYDROX 2400MG/30ML ORAL SUSPENSION 30 ML CUP PO PRN (14:39)
[2023-11-07 09:27] VITALS: BP 111/77; PULSE 87; RESP 20; TEMP 97.8
== END 2023-11-07 09:32 | disposition home or self-care (01) | DRG 773 ==
LOC: YASAS 11:13 → Y3N 12:36
PROVIDERS: ADMIT Allergy & Immunology; ATTEND Surgery
PROC: HZ2ZZZZ Detoxification Services for Substance Abuse Treatment (ICD-10-PCS; principal; 2023-11-01)
DX: F11.23 Opioid dependence with withdrawal (principal); F10.230 Alcohol dependence with withdrawal, uncomplicated; F14.10 Cocaine abuse, uncomplicated; F12.10 Cannabis abuse, uncomplicated; F17.210 Nicotine dependence, cigarettes, uncomplicated; F25.1 Schizoaffective disorder, depressive type; J45.20 Mild intermittent asthma, uncomplicated
CPT/HCPCS: 36415; 80053; 80305; 80307; 85027; 86780

== ENCOUNTER 2024-03-07 09:46 | Inpatient (IN) | payer OTHER ==
[2024-03-07 10:09] VITALS: BMI 30.2
[2024-03-07] MEDS ORDERED: BENZONATATE 200 MG CAPSULE PO PRN (10:36)
[2024-03-07] MEDS ORDERED: ACETAMINOPHEN 325 MG TABLET (FP) PO PRN (10:36)
[2024-03-07] MEDS ORDERED: IBUPROFEN 600 MG TABLET (FP) PO PRN (10:36)
[2024-03-07] MEDS ORDERED: guaiFENesin 600 MG TABLET.ER (FP) PO PRN (10:36)
[2024-03-07] MEDS ORDERED: MAG HYDROX/AL HYDROX/SIMETH 30 ML UNIT-DOSE CUP PO PRN (10:36)
[2024-03-07] MEDS ORDERED: DICYCLOMINE HCL 10 MG CAPSULE PO PRN (10:36)
[2024-03-07] MEDS ORDERED: LOPERAMIDE HCL 2 MG CAPSULE PO PRN (10:36)
[2024-03-07] MEDS ORDERED: POLYETHYLENE GLYCOL (HEALTHYLAX) 3350 17 GM PACKET PO PRN (10:36)
[2024-03-07] MEDS ORDERED: MAGNESIUM HYDROX 2400MG/30ML ORAL SUSPENSION 30 ML CUP PO PRN (10:36)
[2024-03-07] MEDS ORDERED: NALOXONE (NARCAN) HCL 4 MG/0.1 ML SPRAY NS PRN (10:36)
[2024-03-07] MEDS ORDERED: BISMUTH SUBSALICYLATE 262 MG/15 ML BTL PO PRN (10:36)
[2024-03-07] MEDS ORDERED: IBUPROFEN 400 MG TABLET (FP) PO PRN (10:36)
[2024-03-07] MEDS ORDERED: ONDANSETRON *ODT* 4 MG TABLET SL PRN (10:36)
[2024-03-07] MEDS ORDERED: BENZOCAINE/MENTHOL (CHLORASEPTIC ) LOZENGE MM PRN (10:36)
[2024-03-07] MEDS ORDERED: LORazepam 1 MG TABLET PO PRN (10:41)
[2024-03-07] MEDS ORDERED: PRENATAL VITAMINS W/ FOLIC ACID TABLET (FP) PO ONE (10:49)
[2024-03-07] MEDS ORDERED: LORazepam 2 MG TABLET ONE (10:49)
[2024-03-07] MEDS: LORazepam 2 MG TABLET PO ONE (10:52)
[2024-03-07] MEDS: PRENATAL VITAMINS W/ FOLIC ACID TABLET (FP) PO SCH (10:53)
[2024-03-07] MEDS: NICOTINE 7 MG/24 HOURS TOPICAL PATCH TD SCH (11:10)
[2024-03-07] MEDS: LORazepam 2 MG TABLET PO SCH (11:11)
[2024-03-07] MEDS: METHOCARBAMOL 500 MG TABLET PO PRN (12:26)
[2024-03-07] MEDS: hydrOXYzine PAMOATE 25 MG CAPSULE (FP) PO PRN (12:26)
[2024-03-07] MEDS: HYDROCORTISONE 1% TOPICAL CREAM 30 GM TUBE TP ONE (12:27)
[2024-03-07] MEDS: MELATONIN 5 MG TABLETS PO SCH (22:13)
[2024-03-07] MEDS: HALOPERIDOL 5 MG TABLET PO SCH (22:13)
[2024-03-07] MEDS: THIAMINE 100 MG TABLET PO SCH (22:13)
[2024-03-07] MEDS: DOXEPIN HCL 10 MG CAPSULE PO SCH (23:30)
[2024-03-08] MEDS ORDERED: methaDONE HCL 40 MG DISPERSABLE TABLET PO SCH (06:15)
[2024-03-08] MEDS: methaDONE 40 MG, methaDONE 10 MG PO SCH (07:10)
[2024-03-08] MEDS: ESCITALOPRAM OXALATE 20 MG TABLET PO SCH (10:00)
[2024-03-08] MEDS: ARIPiprazole 15 MG TABLET PO SCH (10:00)
[2024-03-08 13:14] LABS: HEMATOCRIT 37.9 % (35.4-49); MCH 27.6 pg (25.7-33.7); MCHC 31.6 g/dl (32.0-35.9); MEAN CELL VOLUME 87.6 fl (80-96); MEAN PLT VOLUME 9.2 fl (7.5-11.1); PLATELET COUNT 127 10^3/uL (134-434); RBC 4.33 M/mm3 (4.00-5.60); RDW 16.1 % (11.9-15.9); WHITE BLOOD COUNT 4.9 K/mm3 (4.0-10.0)
[2024-03-08 14:09] LABS: POTASSIUM 4.1 mmol/L (3.5-5.1)
[2024-03-08 14:12] LABS: CALCIUM 8.7 mg/dL (8.5-10.1)
[2024-03-08 14:13] LABS: BLOOD UREA NITROGEN 17.7 mg/dL (7-18)
[2024-03-08 14:15] LABS: CREATININE 0.7 mg/dL (0.55-1.3)
[2024-03-08 14:16] LABS: BILIRUBIN,TOTAL 0.2 mg/dL (0.2-1); TOT PROT 5.8 g/dl (6.4-8.2)
[2024-03-08 14:24] LABS: ALBUMIN 2.6 g/dl (3.4-5.0)
[2024-03-09] MEDS: LORazepam 1 MG TABLET PO SCH (05:25)
[2024-03-10] MEDS ORDERED: LORazepam 0.5 MG TABLET PO PRN
[2024-03-10] MEDS: LORazepam 0.5 MG TABLET PO SCH (05:39)
[2024-03-11] MEDS: LORazepam 0.5 MG TABLET PO ONE (05:37)
[2024-03-11] MEDS ORDERED: NALOXONE (NYS OPIOID OVERDOSE PROGRAM) 4 MG/0.1 ML SPRAY NS PRN (08:00)
[2024-03-11 09:14] VITALS: BP 133/83; PULSE 69; RESP 18; TEMP 97.6
== END 2024-03-11 09:12 | disposition other institution (70) | DRG 773 ==
LOC: YASAS 09:46 → Y3N 11:16
PROVIDERS: ADMIT Allergy & Immunology; ATTEND Surgery
PROC: HZ2ZZZZ Detoxification Services for Substance Abuse Treatment (ICD-10-PCS; principal; 2024-03-07)
DX: F10.230 Alcohol dependence with withdrawal, uncomplicated (principal); F11.20 Opioid dependence, uncomplicated; F14.20 Cocaine dependence, uncomplicated; F12.20 Cannabis dependence, uncomplicated; F17.210 Nicotine dependence, cigarettes, uncomplicated; F25.1 Schizoaffective disorder, depressive type; G47.30 Sleep apnea, unspecified; J45.909 Unspecified asthma, uncomplicated
CPT/HCPCS: 36415; 80053; 80305; 80307; 82140; 85027; 86780; 93005; 93010